=== PATIENT | male | born 1985 | race Caucasian/White ===

== ENCOUNTER 2019-06-14 22:42 | Emergency (ER) | payer OTHER ==
[~2019-06-14] VITALS: Ht 193 cm; Wt 81.6 kg
[2019-06-14] MEDS ORDERED: NKM (22:56)
[2019-06-14 22:57] VITALS: BP 118/70
--- NOTE | 2019-06-14 22:57 | NUR ---
ED Nurse Note: pt walked in to ED C/O Nausea and had diarrhea x3 today. pt stated this started around 1600 today after eating chicken. PT VSS. pt is alert x4.
--- NOTE | 2019-06-14 23:08 | Emergency Room Report ---
History of Present Illness General Chief Complaint: Nausea, Vomiting, and Diarrhea Source: Patient Present Illness [facility] Disclaimer: Please note that this report is being documented using DRAGON technology. This can lead to erroneous entry secondary to incorrect interpretation by the dictating instrument. HPI: Is a 34-year-old otherwise healthy male presenting for evaluation of abdominal pain nausea and vomiting. Symptoms began this afternoon approximately 4 PM. The patient and his took some chicken at home and shortly thereafter he developed some abdominal cramping and then several episodes of nonbloody, nonbilious emesis. A few hours ago he began to experience nonbloody diarrhea. He denies melena. Has been having several episodes of diarrhea and vomiting since onset. Denies fevers, chills, chest pain, shortness of breath, dysuria or hematuria. His also is having some similar symptoms though more mild than him. He was unable to keep fluids down at home and presented to the emergency department for evaluation. No other complaints at this time. No significant medical history PMH: Denies PSH: Denies Allergies: Denies drug alcohol or tobacco use Social Hx: Denies Allergies: Coded Allergies: No Known Allergies (Unverified , 06/14/19) Nursing Documentation-PMH Past Medical History: No Stated History Review of Systems All Other Systems: negative except mentioned in HPI Physical Exam Vital Signs Date Time Temp Pulse Resp B/P (MAP) Pulse Ox O2 Delivery O2 Flow Rate FiO2 06/14/19 22:52 98.2 99 16 113/64 (80) 96 Room Air General: Awake and alert, no acute distress, afebrile HEENT: NC/AT. EOMI. moist mucous membranes Cardiovascular: Borderline tachycardia. S1 and S2 normal. No murmur appreciated Resp: Normal work of breathing. No cough, wheezing or crackles appreciated Abdomen: Abdomen is soft, nondistended. Nontender, no masses appreciated Skin: Intact. No abrasions, laceration or rash over the exposed skin MSK: Normal tone and bulk. Moving all extremities. No obvious deformity. Neuro: Awake and alert. Mentating appropriately. Medical Decision Making Diagnostic Impression: Primary Impression: Nausea, vomiting, and diarrhea ER Course Is a 34-year-old male presenting for evaluation of abdominal cramping, nausea, vomiting and diarrhea beginning today shortly after eating some homemade chicken. His is having similar though less intense symptoms. Overall, he is well-appearing with stable vital signs. No physical evidence of dehydration. Will give ODT Zofran in the ER and PO challenge. If successful, the patient can be discharged home with more Zofran for symptomatic control of likely a viral gastroenteritis however if he cannot will give IV fluids, IV antiemetics and check labs. Reevaluation Time: 00:10 Last Vital Signs Date Time Temp Pulse Resp B/P (MAP) Pulse Ox O2 Delivery O2 Flow Rate FiO2 06/14/19 22:52 98.2 99 16 113/64 (80) 96 Room Air Reevaluation Impression Able to drink water in the emergency department. Symptoms are controlled at this time with oral Zofran. Will discharge with additional doses and follow-up with PMD. The patient is appropriate for outpatient follow-up and is in no acute distress at this time. We discussed reasons to return to the emergency department. He understands and agrees with this treatment plan will be discharged home. Scripts Ondansetron Odt* (ZOFRAN ODT*) 4 Mg Tab.rapdis 4 MG BC EVERY 6 HOURS PRN for Nausea & Vomiting, #20 TAB 0 Refills Prov: Neo Barajas MD 06/14/19 Referrals: NOT CHOSEN IPA/,REFERRING (PCP) Neo Barajas MD Jun 14, 2019 23:08
[2019-06-14] MEDS ORDERED: ONDANSETRON ODT4 MG BC (23:36)
[2019-06-15 00:03] VITALS: BP 120/68
--- NOTE | 2019-06-15 00:03 | NUR ---
ER DISCHARGE NOTE: Patient is cleared to be discharged per ERMD, pt is aox4, on room air, with stable vital signs. pt was given dc and prescription instructions, pt was able to verbalize understanding, pt id band removed without complications. pt is able to ambulate with steady gait. pt took all belongings.
== END 2019-06-15 00:03 | disposition home or self-care (01) ==
LOC: EMR 23:04
DX: R11.2 Nausea with vomiting, unspecified (principal); R19.7 Diarrhea, unspecified
CPT/HCPCS: 99282